=== PATIENT | female | born 1995 | race Caucasian/White ===

== ENCOUNTER 2021-01-07 21:38 | Outpatient (CLI) | payer BC, OTHER ==
[~2021-01-07 21:38] MED LIST: COLACE 100MG C100 MG PO; IBUPROFEN600 MG PO; LORTAB 5-325 M1 EACH PO; MACROBID 100 M100 M1 PO; PHENERGAN IM25 MG/ML IV; PRENATAL VITAM1 EAC3 PO
== END 2021-01-07 23:30 | disposition home or self-care (01) ==
LOC: GENOP 21:38
DX: O46.93 Antepartum hemorrhage, unspecified, third trimester (principal); O99.891 Other specified diseases and conditions complicating pregnancy; R10.9 Unspecified abdominal pain; O99.283 Endocrine, nutritional and metabolic diseases complicating pregnancy, third trimester; E28.2 Polycystic ovarian syndrome; Z87.440 Personal history of urinary (tract) infections; Z91.018 Allergy to other foods; Z79.899 Other long term (current) drug therapy; Z3A.34 34 weeks gestation of pregnancy
CPT/HCPCS: 81001; G0463

== ENCOUNTER → 2021-01-27 | Outpatient (CLI) | payer BC, OTHER ==
[~2021-01-27] MED LIST changes: +DOCUSATE SODIU100 MG PO; +HYDROCODON-ACE1 EAC4 PO; +LOW DOSE ASPIRI81 MG PO; +TRANDATE 100 M100 MG PO
[2021-01-27 14:26] LABS: HEMOGLOBIN 13.5 gm/dl (12.3-15.3); RED BLOOD COUNT 4.48 M/UL (4.00-5.10); WHITE BLOOD COUNT 8.6 K/UL (4.5-11.0)
== END ==
LOC: GENOP 13:00
PROVIDERS: Obstetrics & Gynecology
DX: Z01.818 Encounter for other preprocedural examination (principal)
CPT/HCPCS: 36415; 81001; 85025

== ENCOUNTER 2021-01-28 05:13 | Inpatient (IN) | payer BC, OTHER ==
[~2021-01-28] VITALS: Ht 165.1 cm; Wt 110.7 kg
[~2021-01-28 05:13] MED LIST changes: -DOCUSATE SODIU100 MG PO; -HYDROCODON-ACE1 EAC4 PO; -LOW DOSE ASPIRI81 MG PO; -TRANDATE 100 M100 MG PO
[2021-01-28] MEDS ORDERED: LOW DOSE ASPIRI81 MG PO (06:14)
[2021-01-28] MEDS ORDERED: TRANDATE 100 M100 MG PO (06:15)
[2021-01-28 06:29] LABS: BUN/CREATININE RATIO 17 (0-10)
[2021-01-28] MEDS ORDERED: DOCUSATE SODIU100 MG PO (09:49)
[2021-01-28] MEDS ORDERED: IBUPROFEN600 MG PO (09:49)
[2021-01-28] MEDS ORDERED: HYDROCODON-ACE1 EAC4 PO (09:49)
[2021-01-29 06:29] LABS: HEMOGLOBIN 12.4 gm/dl (12.3-15.3)
== END 2021-01-29 18:56 | disposition home or self-care (01) | DRG 788 ==
LOC: OB 05:13
PROVIDERS: ADMIT Obstetrics & Gynecology
PROC: 10D00Z1 Extraction of Products of Conception, Low, Open Approach (ICD-10-PCS; principal; 2021-01-28 09:43)
DX: O34.211 Maternal care for low transverse scar from previous cesarean delivery (principal); Z3A.37 37 weeks gestation of pregnancy; O13.4 Gestational [pregnancy-induced] hypertension without significant proteinuria, complicating childbirth; Z20.822 Contact with and (suspected) exposure to COVID-19; O76 Abnormality in fetal heart rate and rhythm complicating labor and delivery; Z83.3 Family history of diabetes mellitus; Z82.49 Family history of ischemic heart disease and other diseases of the circulatory system; Z79.82 Long term (current) use of aspirin; Z87.440 Personal history of urinary (tract) infections; Z37.0 Single live birth
CPT/HCPCS: 36415; 80053; 81001; 82800; 85014; 85018; 85025; C9113; J0690; J1170; J2274; J2590; J7120; U0003

== ENCOUNTER → 2022-02-22 | Outpatient (CLI) | payer BC, OTHER ==
[~2022-02-22] MED LIST changes: +DOCUSATE SODIU100 MG PO; +EXPECTA PRENAT1 EACH PO; +HYDROCODON-ACE1 EAC4 PO; +LOW DOSE ASPIRI81 MG PO; +TRANDATE 100 M100 MG PO; +VAZALORE81 MG PO
[2022-02-22 13:15] LABS: HEMOGLOBIN 12.8 gm/dl (12.3-15.3); RED BLOOD COUNT 4.41 M/UL (4.00-5.10); WHITE BLOOD COUNT 7.3 K/UL (4.5-11.0)
== END ==
LOC: GENOP 12:06
PROVIDERS: Obstetrics & Gynecology
DX: Z01.812 Encounter for preprocedural laboratory examination (principal)
CPT/HCPCS: 36415; 81001; 85025

== ENCOUNTER 2022-02-23 04:51 | Inpatient (IN) | payer BC, OTHER ==
[~2022-02-23] VITALS: Ht 165.1 cm; Wt 110.7 kg
[~2022-02-23 04:51] MED LIST changes: -EXPECTA PRENAT1 EACH PO; -VAZALORE81 MG PO
[2022-02-23] MEDS ORDERED: EXPECTA PRENAT1 EACH PO (06:35)
[2022-02-23] MEDS ORDERED: VAZALORE81 MG PO (06:36)
[2022-02-23] MEDS ORDERED: DOCUSATE SODIU100 MG PO (09:40)
[2022-02-23] MEDS ORDERED: HYDROCODON-ACE1 EAC4 PO (09:40)
[2022-02-23] MEDS ORDERED: IBUPROFEN600 MG PO (09:40)
== END 2022-02-25 18:24 | disposition home or self-care (01) | DRG 786 ==
LOC: OB 04:51
PROVIDERS: ADMIT Obstetrics & Gynecology
PROC: 4A1HXCZ Monitoring of Products of Conception, Cardiac Rate, External Approach (ICD-10-PCS; 2022-02-23)
PROC: 10D00Z1 Extraction of Products of Conception, Low, Open Approach (ICD-10-PCS; principal; 2022-02-23 07:30)
DX: O34.211 Maternal care for low transverse scar from previous cesarean delivery (principal); O99.42 Diseases of the circulatory system complicating childbirth; Z3A.37 37 weeks gestation of pregnancy; Z37.2 Twins, both liveborn; Z20.822 Contact with and (suspected) exposure to COVID-19; Z37.0 Single live birth; O30.033 Twin pregnancy, monochorionic/diamniotic, third trimester; Z28.310 Unvaccinated for COVID-19; O69.81X2 Labor and delivery complicated by cord around neck, without compression, fetus 2; Z87.440 Personal history of urinary (tract) infections; Z83.3 Family history of diabetes mellitus; Z82.49 Family history of ischemic heart disease and other diseases of the circulatory system; I49.9 Cardiac arrhythmia, unspecified; N73.6 Female pelvic peritoneal adhesions (postinfective)
CPT/HCPCS: 36415; 82800; 85014; 85018; 90715; C9113; J0690; J1170; J1650; J1885; J2274; J2370; J2405; J2590; J3010; J3430